=== PATIENT | male | born 1955 | race African-American/Black ===

== ENCOUNTER 2018-04-18 05:48 | Emergency (ER) | payer SELFPAY ==
[~2018-04-18] VITALS: Ht 170.2 cm; Wt 102.0 kg
[2018-04-18] MEDS ORDERED: ACETAMINOPHEN 500MG TABLET PO ONE (06:45)
[2018-04-18 07:25] VITALS: BP 126/72
== END 2018-04-18 07:26 | disposition home or self-care (01) ==
LOC: ER 05:48
DX: S39.012A Strain of muscle, fascia and tendon of lower back, initial encounter (principal); S16.1XXA Strain of muscle, fascia and tendon at neck level, initial encounter; V49.88XA Car occupant (driver) (passenger) injured in other specified transport accidents, initial encounter; Y93.89 Activity, other specified; Y92.89 Other specified places as the place of occurrence of the external cause; Y99.8 Other external cause status; Z88.6 Allergy status to analgesic agent; Z98.890 Other specified postprocedural states
CPT/HCPCS: 99283

== ENCOUNTER 2018-06-24 10:47 | Emergency (ER) | payer SELFPAY | END 2018-06-24 14:22 | disposition left against medical advice (07) | LOC: ER 14:07 | DX: M54.9 Dorsalgia, unspecified (principal); Z53.21 Procedure and treatment not carried out due to patient leaving prior to being seen by health care provider ==

== ENCOUNTER 2019-01-01 14:22 | Emergency (ER) | payer MEDICAID ==
[~2019-01-01] VITALS: Ht 167.6 cm; Wt 84.0 kg
[2019-01-01] MEDS ORDERED: HYDROCODONE/ACETAMINOPHEN 5/325MG TABLET PO ONE (15:45)
[2019-01-01 19:00] VITALS: BP 148/75
== END 2019-01-01 19:12 | disposition home or self-care (01) ==
LOC: ER 14:22
DX: S09.8XXA Other specified injuries of head, initial encounter (principal); S30.0XXA Contusion of lower back and pelvis, initial encounter; V03.99XA Pedestrian with other conveyance injured in collision with car, pick-up truck or van, unspecified whether traffic or nontraffic accident, initial encounter; Y93.55 Activity, bike riding; Y92.410 Unspecified street and highway as the place of occurrence of the external cause; Z88.6 Allergy status to analgesic agent
CPT/HCPCS: 72110; 73610; 99284

== ENCOUNTER 2020-10-09 05:50 | Emergency (ER) | payer OTHER ==
[~2020-10-09] VITALS: Ht 170.2 cm; Wt 90.0 kg
[2020-10-09] MEDS ORDERED: TRAMADOL 50MG TABLET PO ONE (09:00)
[2020-10-09] MEDS ORDERED: ONDANSETRON 4MG ODT PO ONE (09:00)
[2020-10-09] MEDS ORDERED: FAMOTIDINE 20MG/2ML VIAL IV ONE (09:00)
[2020-10-09 09:30] LABS: CHLORIDE 107 mEq/L (98-107)
[2020-10-09 09:48] VITALS: BP 173/97
[2020-10-09 09:51] LABS: BASOPHILS % 0.6 % (0.0-2.0); EOSINOPHILS % 0.1 % (0.0-5.0); HEMATOCRIT. 37.1 % (42.0-52.0); HEMOGLOBIN. 11.6 g/dL (14.0-18.0); LYMPHOCYTES % 19.9 % (20.0-50.0); MEAN CORPUSCULAR HEMOGLOBIN 21.6 pg (28.0-32.0); MEAN CORPUSCULAR VOLUME 69.2 fL (80.0-94.0); MEAN PLATELET VOLUME 7.1 fl (7.4-10.4); MONOCYTES % 8.3 % (2.0-8.0); NEUTROPHILS % 71.1 % (40.0-76.0); PLATELET 348 x1000/uL (130-400); RED BLOOD CELL COUNT 5.36 mill/uL (4.7-6.1); RED CELL DISTRIBUTION WIDTH 17.4 % (11.6-14.6)
[2020-10-09 10:37] LABS: PLATELET ESTIMATE NORMAL
== END 2020-10-09 11:28 | disposition home or self-care (01) ==
LOC: ER 05:50
DX: R10.9 Unspecified abdominal pain (principal); I10 Essential (primary) hypertension; Z88.6 Allergy status to analgesic agent
CPT/HCPCS: 36415; 80053; 83690; 85025; 96374; 99283; J3490; Q0162

== ENCOUNTER 2021-08-01 21:04 | Emergency (ER) | payer SELFPAY ==
[~2021-08-01] VITALS: Ht 170.2 cm; Wt 91.0 kg
[2021-08-01 22:27] VITALS: BP 117/53
[2021-08-02] MEDS ORDERED: ACETAMINOPHEN 325MG TABLET PO ONE (01:30)
[2021-08-02] MEDS ORDERED: ACET-2708 MT (01:42)
== END 2021-08-02 02:20 | disposition home or self-care (01) ==
LOC: ER 21:04
DX: S39.012A Strain of muscle, fascia and tendon of lower back, initial encounter (principal); S16.1XXA Strain of muscle, fascia and tendon at neck level, initial encounter; V43.52XA Car driver injured in collision with other type car in traffic accident, initial encounter; Y93.89 Activity, other specified; Y92.410 Unspecified street and highway as the place of occurrence of the external cause; Z88.6 Allergy status to analgesic agent
CPT/HCPCS: 99282

== ENCOUNTER 2024-07-23 11:04 | Emergency (ER) | payer MEDICARE, MEDICAID ==
[~2024-07-23] VITALS: Ht 170.2 cm; Wt 81.6 kg
[~2024-07-23 11:04] MED LIST: ACET-2708 MT; OXYC-748 PO
[2024-07-23 11:07] VITALS: O2SAT 100
[2024-07-23 11:13] VITALS: BP 141/86; PULSE 83; RESP 16; TEMP 98.4; O2SAT 99
[2024-07-23 11:34] LABS: BASOPHILS % 0.1 % (0.0-2.0); EOSINOPHILS % 0.9 % (0.0-5.0); HEMATOCRIT. 36.7 % (42.0-52.0); HEMOGLOBIN. 11.4 g/dL (14.0-18.0); LYMPHOCYTES % 40.6 % (20.0-50.0); MEAN CORPUSCULAR HEMOGLOBIN 21.7 pg (28.0-32.0); MEAN CORPUSCULAR VOLUME 69.9 fL (80.0-94.0); MONOCYTES % 10.4 % (2.0-8.0); PLATELET 290 x1000/uL (130-400); RED BLOOD CELL COUNT 5.25 mill/uL (4.7-6.1); RED CELL DISTRIBUTION WIDTH 18.1 % (11.6-14.6); WHITE BLOOD COUNT 5.5 x1000/uL (4.5-11.0)
[2024-07-23 11:41] LABS: ADD RBC MORPHOLOGY YES; DIFFERENTIAL COMMENT 1
[2024-07-23 11:42] LABS: CHLORIDE 110 mEq/L (98-107); SODIUM 141 mEq/L (136-145)
[2024-07-23 11:43] LABS: CARBON DIOXIDE 29 mEq/L (21-32)
[2024-07-23 11:44] LABS: CALCIUM 9.3 mg/dL (8.7-10.4)
[2024-07-23 11:48] LABS: GLUCOSE 85 mg/dL (70-105); UREA NITROGEN BLOOD 8 mg/dL (9-23)
[2024-07-23 11:49] LABS: TROPONIN I HIGH SENSITIVITY 7 ng/L (3.0-53)
[2024-07-23 11:57] LABS: ANISOCYTOSIS 2+; MICROCYTOSIS 3+; PLATELET ESTIMATE NORMAL
== END 2024-07-23 12:13 | disposition left against medical advice (07) ==
LOC: ER 11:04
DX: R07.89 Other chest pain (principal); F12.10 Cannabis abuse, uncomplicated; Z88.6 Allergy status to analgesic agent; Z95.0 Presence of cardiac pacemaker
CPT/HCPCS: 36415; 71045; 80048; 84484; 85025; 93005; 99285